=== PATIENT | female | born 1945 ===

== ENCOUNTER 2020-05-18 05:50 | Day surgery (SDC) | payer OTHER ==
[~2020-05-18 05:50] MED LIST: ARICEPT10 MG PO; ASA81 MG PO; DAFLONEX-XL 11300 MG PO; IRBESARTAN300 MG PO; LEVO-T112 MCG PO; NAMENDA10 MG PO; PRAVASTATIN SOD20 MG PO; PRILOSEC OTC20 MG PO; SINGULAIR10 MG PO; ZOLOFT50 MG PO
[2020-05-18] MEDS ORDERED: ULTRACET PO (10:15)
[2020-05-18] MEDS ORDERED: MACROBID 100 M100 MG PO (10:15)
== END 2020-05-18 14:30 | disposition home or self-care (01) ==
LOC: CIR.AMB 05:50
PROVIDERS: ATTEND Obstetrics & Gynecology Gynecology
DX: N81.3 Complete uterovaginal prolapse (principal); Z20.828 Contact with and (suspected) exposure to other viral communicable diseases